=== PATIENT | female | born 1975 | race Asian ===

== ENCOUNTER 2020-09-23 10:00 | Outpatient (CLI) | payer BC, SELFPAY ==
[~2020-09-23] VITALS: Ht 157.5 cm; Wt 54.4 kg
[2020-09-23 10:34] LABS: HCG,QUAL RESULT NEGATIVE (NEGATIVE)
[2020-09-23 10:54] VITALS: BP_SYST 114
== END 2020-09-23 11:00 | disposition home or self-care (01) ==
LOC: SLB 10:00 → EDBD 10:04 → SDS 10:04 → SMU 10:23 → SDS 10:23 → SMU 10:55 → SLB 11:00 → EDSTATUS 11:30
PROVIDERS: ATTEND Obstetrics & Gynecology
DX: Z30.432 Encounter for removal of intrauterine contraceptive device (principal); T83.32XA Displacement of intrauterine contraceptive device, initial encounter; Y83.8 Other surgical procedures as the cause of abnormal reaction of the patient, or of later complication, without mention of misadventure at the time of the procedure; Z53.8 Procedure and treatment not carried out for other reasons; Z20.822 Contact with and (suspected) exposure to COVID-19
CPT/HCPCS: 36415; 84703

== ENCOUNTER 2020-10-02 10:50 | Day surgery (SDC) | payer BC, SELFPAY ==
[~2020-10-02] VITALS: Ht 157.5 cm; Wt 54.4 kg
[2020-10-02 11:39] LABS: HCG,QUAL RESULT NEGATIVE (NEGATIVE)
[2020-10-02] MEDS ORDERED: PROPOFOL 200MG/ 20ML VIAL (DIPRIVAN) IV ONE (11:59)
[2020-10-02] MEDS ORDERED: SEVOFLURANE 15 MIN GAS INH ONE (11:59)
[2020-10-02] MEDS ORDERED: MIDAZOLAM HCL 5 MG/5 ML VIAL IVP ONE (11:59)
[2020-10-02] MEDS ORDERED: fentaNYL CITRATE/PF 100 MCG/2 ML AMP IVP ONE (11:59)
[2020-10-02] MEDS ORDERED: LR 1,000 ML IV.SOLN IV ONE (11:59)
[2020-10-02] MEDS ORDERED: METOCLOPRAMIDE HCL 10 MG/2 ML VIAL IVP ONE (11:59)
[2020-10-02] MEDS ORDERED: DEXAMETHASONE SOD PHOSPHATE 4 MG/ML VIAL IVP ONE (11:59)
[2020-10-02] MEDS ORDERED: LR 1,000 ML IV SCH (12:45)
[2020-10-02] MEDS ORDERED: HYDROmorphone 1 MG/ML INJ. CARTRIDGE IVP PRN (12:45)
[2020-10-02] MEDS ORDERED: MEPERIDINE HCL/PF 25 MG/ML DISP.SYRIN IVP PRN (12:45)
[2020-10-02] MEDS ORDERED: HYDROmorphone 2 MG/ML VIAL IVP PRN (12:45)
[2020-10-02 14:33] VITALS: BP_SYST 120
== END 2020-10-02 14:10 | disposition home or self-care (01) ==
LOC: SDS 10:50
PROVIDERS: ATTEND Obstetrics & Gynecology
DX: T83.32XA Displacement of intrauterine contraceptive device, initial encounter (principal); Y83.8 Other surgical procedures as the cause of abnormal reaction of the patient, or of later complication, without mention of misadventure at the time of the procedure
CPT/HCPCS: 36415; 58562; 84703; 86886; 86900; 86901; 87426; J1100; J2250; J2704; J2765; J3010; J7120